=== PATIENT | male | born 1945 | race Caucasian/White ===

== ENCOUNTER 2018-01-13 08:04 | Inpatient (IN) | payer OTHER ==
[~2018-01-13 08:04] MED LIST: TRANEXAMIC ACID 1,000 MG in NS (SYRINGE) 50 ML IV ONE
[2018-01-13] MEDS ORDERED: ACETAMINOPHEN 500 MG TAB PO ONE (08:30)
[2018-01-13] MEDS ORDERED: ceFAZolin 2 GM/SWFI 2 GM/20 ML SYR IVP ONE (08:30)
[2018-01-13] MEDS ORDERED: GABAPENTIN 300 MG CAP PO ONE (08:30)
--- NOTE | 2018-01-13 09:06 | CPEKG ---
Heart Rate: 76 RR Interval: 789 P-R Interval: 168 QRSD Interval: 108 QT Interval: 392 QTC Interval: 441 P [place]: -11 QRS [place]: 13 T Wave [place]: 74 EKG Severity - ABNORMAL ECG - EKG Impression: SINUS RHYTHM EKG Impression: PROBABLE LEFT ATRIAL ABNORMALITY EKG Impression: INCOMPLETE RIGHT BUNDLE BRANCH BLOCK Electronically Signed By: Terrance Bauer 13-Jan-2018 09:33:13
[2018-01-13] MEDS ORDERED: BUPIVACAINE 0.25% 30 ML SDV ONE ×3 (09:12→16:31)
[2018-01-13] MEDS ORDERED: CHLORHEXIDINE GLUC HIBICLENS 118 ML BTL TP ONE (09:12)
[2018-01-13] MEDS ORDERED: THROMBIN (BOVINE) 20,000 UNIT VIAL TP ONE ×2 (09:12→14:51)
[2018-01-13] MEDS ORDERED: EPINEPHrine 1 MG/ML INJ ONE ×2 (09:12→16:31)
[2018-01-13] MEDS ORDERED: BACITRACIN 50,000 UNITS/10 ML SYR IRR ONE ×2 (09:13→09:34)
[2018-01-13] MEDS ORDERED: TRANEXAMIC ACID 1,000 MG in NS (SYRINGE) 50 ML IV ONE (09:30)
[2018-01-13] MEDS ORDERED: LR 1,000 ML IV ONE (09:34)
--- NOTE | 2018-01-13 10:26 | PDANEPAE ---
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, ANE Past Medical History - Cardiovascular History Hx Hypertension: No Hx Arrhythmias: No Hx Chest Pain: No Hx Coronary Artery / Peripheral Vascular Disease: No Hx CHF / Valvular Disease: No Hx Palpitations: No Cardiovascular History Comment: Incomplete RBBB - Pulmonary History Hx COPD: No Hx Asthma/Reactive Airway Disease: Yes Hx Recent Upper Respiratory Infection: No Hx Oxygen in Use at Home: No Hx Sleep Apnea: No Sleep Apnea Screening Result - Last Documented: Negative Pulmonary History Comment: SEASONAL ALLERGIES - Neurologic History Hx Cerebrovascular Accident: No Hx Seizures: No Hx Dementia: No - Endocrine History Hx Diabetes: No Obesity: moderate - Renal History Hx Renal Disorders: No - Liver History Hx Hepatic Disorders: No - Neurological & Psychiatric Hx Hx Neurological and Psychiatric Disorders: Yes Neurological / Psychiatric History Comment: numbness in lower extremities and groin which started about 1 month after his surgery in 08/30, has ambulated with crutches since then. - Cancer History Hx Cancer: No - Congenital Disorder History Hx Congenital Disorders: No - GI History GERD: no Hx Gastrointestinal Disorders: No - Other Health History Other Health History: PSORIASIS - Chronic Pain History Chronic Pain: Yes (BACK WEAKNESS & NUMBNESS) - Surgical History Prior Surgeries: 08/2017 LUMBAR DECOMPRESSION AND CYST REMOVAL. ANKLE FX. TONSILLECTOMY ANE Review of Systems Review of Systems: - Exercise capacity METS (RN): 3 METS ANE Patient History - Allergies Allergies/Adverse Reactions: No Known Allergies Allergy (Unverified 01/02/18 10:23) - Home Medications Home Medications: Albuterol [Proventil Inhaler HFA (*)] 2 puffs IH Q4H PRN 01/02/18 [Last Taken ] C/E/Zn/Cu/OM3/DHA/EPA/LUT/ZEAX [Preservision Areds 2 Softgel] 1 each PO DAILY [Last Taken 01/06/18] Cholecalciferol Vit D3 [Vitamin D3 (*)] 1,000 units PO DAILY 01/02/18 [Last Taken 01/06/18] Cyanocobalamin [Vitamin B12 (*)] 500 mcg PO DAILY 01/02/18 [Last Taken 01/06/18] Fluticasone Nasal [Flonase Nasal [place] (RX)] 1 sprays NASAL DAILY PRN 01/02/18 [ Last Taken 01/13/18 06:15] Fluticasone/Salmeter 250/50Mcg [Advair 250/50 (*)] 1 puffs IH BID 01/02/18 [ Last Taken Unknown] Herbals/Supplements -Info Only 1 ea PO DAILY 01/02/18 [Last Taken 01/06/18] Multivitamins [Multivitamin (*)] 1 each PO DAILY 01/02/18 [Last Taken 01/06/18] Naproxen Sodium [Aleve 220 MG (*)] 440 mg PO BID 01/02/18 [Last Taken Unknown] Niacin ER [Niaspan 500 mg (*)] 500 mg PO HS 01/02/18 [Last Taken 01/06/18] - NPO status NPO Since - Liquids (Date): 01/12/18 NPO Since - Liquids (Time): 07:30 NPO Since - Solids (Date): 01/12/18 NPO Since - Solids (Time): 19:30 - Smoking Hx Smoking Status: Never smoked - Family Anes Hx Family Hx Anesthesia Complications: NEG ANE Labs/Vital Signs - Vital Signs Blood Pressure: 128/84 Heart Rate: 84 Respiratory Rate: 18 O2 Sat (%): 89 Height: 167.64 cm Weight: 90.718 kg ANE Physical Exam - Airway Neck exam: FROM Mallampati Score: Class 2 Mouth exam: normal dental/mouth exam (front upper teeth are ground/chipped) - Pulmonary Pulmonary: clear to auscultation - Cardiovascular Cardiovascular: regular rate and rhythym - ASA Status ASA Status: III ANE Anesthesia Plan Anesthesia Plan: general endotracheal anesthesia Lines/Monitors: arterial line (Procedure/risks/benefits discussed including intra-arterial BP monitoring, possible postop ICU care.)
[2018-01-13] MEDS ORDERED: MIDAZOLAM 2 MG/2 ML VIAL IVP ONE (10:33)
[2018-01-13] MEDS ORDERED: fentaNYL 250 MCG/5 ML INJ ONE (10:38)
[2018-01-13] MEDS ORDERED: ROCURONIUM 50 MG/5 ML VIAL ONE ×2 (10:39→13:01)
[2018-01-13] MEDS ORDERED: KETAMINE 200 MG/20 ML VIAL ONE (10:39)
[2018-01-13] MEDS ORDERED: PROPOFOL/EMULSION 500 MG/50 ML BOTTLE IV ONE ×3 (10:39→14:40)
[2018-01-13] MEDS ORDERED: DEXAMETHASONE 4 MG/ML VIAL ONE (10:53)
[2018-01-13] MEDS ORDERED: fentaNYL 100 MCG/2 ML INJ ONE ×3 (13:47→17:46)
[2018-01-13] MEDS ORDERED: ONDANSETRON 4 MG/2 ML VIAL ONE (15:39)
--- NOTE | 2018-01-13 15:59 | GOP ---
[f rep st] OPERATIVE REPORT DATE OF OPERATION: 01/13/2018 SURGEON: Josiah Christian MD NEUROSURGEON: Josiah Christian MD GREEN CHAIN PULLER: EFE Castillo. ANESTHESIA: General endotracheal. ANESTHESIOLOGIST: After informed consent was obtained, the patient was taken to the operating room a nd placed in the supine position with the head in the halter retractor system. After obtaining baseli ne potentials, the anterior cervical region was prepped and draped in a sterile fashion. After fluor oscopic localization of the correct levels, the subcutaneous and intramuscular tissues were infiltrat ed with local anesthesia. A horizontal incision was then created in the skin crease at the level C5- 6 interspace. This was carried through the platysmal layer using monopolar electrocautery and sebastian d in the avascular plane between the sternocleidomastoid and carotid sheath laterally and the strap m uscles, trachea, and esophagus medially down to the prevertebral fascia, which was carefully incised with Metzenbaum scissors. Note, that the exposure was very time consuming and arduous due to the pat ient's morbid obesity but I was able to obtain a good exposure. Working at a much deeper depth did m oliver the entire procedure much more difficult and time consuming. There was a large osteophyte that w as carefully removed and harvested for local autograft. The distraction pins were then inserted and a slight amount of distraction created across the C5-6 interspace using the [place] distraction pins. A complete diskectomy was then performed with removal of posterior longitudinal ligament and the pos teriorly protruding osteophytes as well. Bilateral foraminotomies were performed and meticulous hemo stasis was achieved. The remaining endplates were carefully prepared and an appropriately sized 12 m m structural PEEK interbody spacer packed with local autograft in the center along with demineralized bone matrix was placed in the interspace under fluoroscopic image guidance. The distraction was rem barry and an appropriately sized 23 mm LnK CastleLoc-P anterior cervical plate was then placed and sec ured at the C5-6 level. Following fluoroscopic verification of the position of the plate, the lockin g mechanisms were engaged. A drain was placed. The wound was copiously irrigated with antibiotic ir rigation followed by reinfiltration with local anesthesia and closed in a layered fashion using inter rupted Vicryl sutures followed by Steri-Strips on the skin. PREOPERATIVE DIAGNOSIS: C5-6 disk degeneration and disk herniation with cervical central canal steno sis and spinal cord compression. POSTOPERATIVE DIAGNOSIS: C5-6 disk degeneration and disk herniation with cervical central canal sten osis and spinal cord compression. PROCEDURE PERFORMED: C5-6 complete anterior cervical diskectomy and fusion with 12 mm structural PEE K interbody spacers, local autograft and demineralized bone matrix. Placement of a 23 mm LnK CastleL oc-P anterior cervical plate with self-drilling screws. Use of intraoperative microscopy and fluoros copy. FINDINGS: ESTIMATED BLOOD LOSS: 25 cc. INDICATIONS: Patient is a 72-year-old man who has progressive myelopathic symptoms most predominantl y secondary to a thoracic spinal lesion causing cord compression, but he also has evidence of central canal stenosis and spinal cord compression at the cervical level secondary to C5-6 disk degeneration , collapse and herniation. He presents now for surgical decompression and stabilization at the C5-6 level and at the upper thoracic level. DESCRIPTION OF PROCEDURE: COMPLICATIONS: None. DISPOSITION: The patient is currently being repositioned for the posterior portion of the operation in the upper thoracic level. /[id number]/MODL
[2018-01-13] MEDS ORDERED: PROPOFOL 200 MG/20 ML VIAL ONE (16:29)
[2018-01-13] MEDS ORDERED: morphINE PF 5 MG/10 ML INJ ONE (16:31)
[2018-01-13] MEDS ORDERED: ceFAZolin 1 GM VIAL ONE (16:32)
[2018-01-13] MEDS ORDERED: ALBUTEROL 60 PUFFS/8 GM MDI IH PRN (16:57)
[2018-01-13] MEDS ORDERED: FLUTICASONE NASAL 120 SPRAYS/16 GM MDI EACHNARE PRN (16:57)
[2018-01-13] MEDS ORDERED: ONDANSETRON DISINTEGRATING 4 MG TAB PO PRN (16:58)
[2018-01-13] MEDS ORDERED: MAGNESIUM HYDROXIDE 30 ML UDCUP PO PRN (16:58)
[2018-01-13] MEDS ORDERED: LACTULOSE 20 GM/30 ML UDCUP PO PRN (16:58)
[2018-01-13] MEDS ORDERED: ONDANSETRON 4 MG/2 ML VIAL IVP PRN ×2 (16:58→17:50)
[2018-01-13] MEDS ORDERED: NALOXONE HCL 0.4 MG/ML INJ IVP PRN ×2 (16:58→17:50)
[2018-01-13] MEDS ORDERED: BISACODYL 10 MG SUPP PR PRN (16:58)
[2018-01-13] MEDS ORDERED: morphINE PCA 30 MG/30 ML PCA IV PRN (16:58)
[2018-01-13] MEDS ORDERED: diphenhydrAMINE 25 MG CAP PO PRN (16:58)
[2018-01-13] MEDS ORDERED: NS W/ 20 KCl/L 1,000 ML IV SCH (17:00)
--- NOTE | 2018-01-13 17:13 | SOAPPROG ---
SOAP Progress Note Assessment/Plan: Assessment: 72 yo M sp C5/6 ACDF for cervical stenosis and T2-6 fusion with L3/ 4 laminectomy for tumor resection Plan: stable to step down for observation PT/OT weak in legs prior to surgery please call with neuro changes 01/13/18 17:11 Subjective: no back pain, no arm pain. Objective: Vital Signs Temp Pulse Resp BP Pulse Ox 36.7 C 84 18 128/84 H 89 L 01/13/18 09:14 01/13/18 11:58 01/13/18 11:58 01/13/18 11:58 01/13/18 11:58 Laboratory Results 01/13/18 14:20 01/13/18 14:20 awake, alert PERRL, no facial droop MORENITA x 4 with limited movement of legs similar to before surgery. ICD10 Worksheet Patient Problems: Problems Problem Status Onset Fusion of spine of cervical region Acute - ICD10 Problem Qualifiers (1) Fusion of spine of cervical region
[2018-01-13] MEDS ORDERED: HYDROmorphONE/DILAUDID 2 MG/ML INJ ONE (17:46)
[2018-01-13] MEDS: fentaNYL 100 MCG/2 ML INJ IVP PRN ×3 (17:54→18:08)
--- NOTE | 2018-01-13 19:47 | POSTANESTH ---
Post Anesthetic Evaluation Cardiovascular Status: Normal, Stable Respiratory Status: Similar to Pre-op Cond. Level of Consciousness/Mental Status: Can Participate in Eval Pain Control: Adequate, Prn Tx Ordered Nausea/Vomiting Control: Adequate, Prn Tx Ordered Complications Possibly Related to Anesthesia: None Noted
[2018-01-13] MEDS: FLUTICASONE/SALMETER 250/50MCG DISKUS IH SCH (20:50)
[2018-01-13] MEDS: morphINE SR 15 MG TAB PO SCH (21:15)
[2018-01-13] MEDS: ceFAZolin 2 GM/SWFI 2 GM/20 ML SYR IVP SCH (21:17)
[2018-01-13] MEDS: SENNOSIDES/DOCUSATE SODIUM TAB PO SCH (21:18)
[2018-01-13] MEDS: POLYETHYLENE GLYCOL 3350 17 GM PKT PO SCH (21:18)
[2018-01-13] MEDS: FAMOTIDINE 20 MG TAB PO SCH (21:19)
[2018-01-13] MEDS: NIACIN ER 500 MG TAB.ER PO SCH (21:22)
[2018-01-13] MEDS ORDERED: ceFAZolin 2 GM/DEXTROSE 100 ML IV SCH (22:00)
--- NOTE | 2018-01-13 22:36 | GOP ---
[f rep st] OPERATIVE REPORT DATE OF OPERATION: 01/13/2018 SURGEON: Josiah Christian MD NEUROSURGEON: Josiah Christian MD AUTOMOTIVE UPHOLSTERER: EFE Castillo ANESTHESIA: General endotracheal. 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 PROCEDURE PERFORMED: 1. T3-4 laminectomies with facetectomies and costotransvertebral approach for partial corpectomy and tumor resection for decompression of spinal cord. 2. T2 through T6 posterior segmental (pedicle screw) fixation and posterolateral fusion with morseli zed allograft. 3. Injection of intrathecal narcotic analgesics. 4. Use of intraoperative microscopy, fluoroscopy, and computer volumetric stereotactic navigation [facility] intraoperative neurophysiologic testing. FINDINGS: ESTIMATED BLOOD LOSS: 500 cc. DESCRIPTION OF PROCEDURE: After informed consent was obtained and after the anterior cervical proced ure was completed, the patient was repositioned prone on the Ciro table. Stable baselines were co nfirmed and after fluoroscopic localization, the subcutaneous and intramuscular tissues were infiltra felicita with local anesthesia. A midline linear incision was then created from approximately T2 through T6. This was carried down to the fascial layer, which was then incised using the monopolar electroca utery and carried in the subperiosteal plane along the spinous processes down to the lamina bilateral ly. Intraoperative fluoroscopy was again utilized to verify the correct levels. Following this, T3 and T4 laminectomies were performed with complete facetectomy at the T3-4 level and extensive drillin g through a costotransvertebral approach down to the T4 pedicle, which was carefully removed using e coarse jefe bur. The C4 nerve root was tied off and in order to access the vertebral bodies whe re there was an extensive amount of epidural tumor causing cord compression. This was removed and se nt for pathology. A partial corpectomy was then performed using the coarse jefe bur and the pitui tary rongeurs at both T3 and T4. Following adequate decompression and copious irrigation, meticulous hemostasis was achieved using Gelfoam soaked in thrombin, which was then removed. The [facility] was then [facility] in and 3-D reconstructed images obtained. Using computer volumetr ic stereotactic navigation, pedicle screws were placed at T2, T3, T4, T5, and T6. Each individual sc rew was tested neurophysiologically with monopolar electrostimulation and interpretation of the poten tials by the surgeon. The rods were then placed and secured at the appropriate angles. The remainin g lamina and facet joints were then extensively decorticated from T2 down to T6 and morselized allogr aft placed laterally for posterolateral fusion from T2-T6. I did not use the local autograft that wa s removed due to the bony involvement of tumor. A drain was then placed. The subcutaneous and intra muscular tissues were re-infiltrated with local anesthesia, and the wound was closed in a layered fas hion using interrupted Vicryl sutures, followed by Steri-Strips on the skin. Note that the O-arm therese ronavigational system was also utilized to verify good position of the screws prior to closure. A 25 -gauge spinal needle was placed in the lumbar spine and 200 mcg of Duramorph along with 50 mcg of fen tanyl were injected intrathecally for postoperative pain control. COMPLICATIONS: None. 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 He presents now for decompression and stab ilization of the cervical stenosis, as well as open biopsy/resection/partial corpectomy/decompression and facetectomy and instrumentation in the thoracic area. DISPOSITION: The patient is currently in the process of being repositioned for extubation. /[id number]/MODL
[2018-01-14 02:33] LABS: PLATELET COUNT 173 10^3/uL (150-400)
[2018-01-14] MEDS ORDERED: ALBUMIN 5% 500 ML IV ONE (04:00)
[2018-01-14] MEDS ORDERED: NS BOLUS 500 ML IV ONE (04:00)
--- NOTE | 2018-01-14 05:27 | PDMN ---
Medical Necessity Medical necessity: [facility] IP only surgery, cpt 59050, 11851, 13883, C5/6 ACDF, T2 -T6 fusion & L3/4 laminectomy w/tumor resection; admit to Step-Down ICU; per progress note & order 01/13/18
[2018-01-14] MEDS: ceFAZolin 2 GM/SWFI 2 GM/20 ML SYR IVP SCH (05:29)
[2018-01-14] MEDS: POLYETHYLENE GLYCOL 3350 17 GM PKT PO SCH ×3 (08:01→21:46)
[2018-01-14] MEDS: SENNOSIDES/DOCUSATE SODIUM TAB PO SCH ×2 (08:02→21:46)
[2018-01-14] MEDS: morphINE SR 15 MG TAB PO SCH ×2 (08:02→21:46)
[2018-01-14] MEDS: FAMOTIDINE 20 MG TAB PO SCH ×2 (08:02→21:47)
--- NOTE | 2018-01-14 08:02 | NEUSURGPN ---
Date of Surgery: 01/13/18 Post Op Day: 1 Assessment/Plan: Assessment: 72 yo M sp C5/6 ACDF for cervical stenosis and T2-6 fusion with L3/ 4 laminectomy for tumor resection POD #1 Plan: -neuro stable -JPs still productive -pt with continue numbness in feet but this is better -CDI x 2 -plan for C and T spine xrays -plan for MRI of the T spine today -PT/OT-CPM -weak in legs prior to surgery-better per patient -D/W Dr Olson -call with any questions or concerns -please call with neuro changes Subjective: Awake and alert. NAD. Eating/drinking and voiding. No f/c/n/v/d. Objective: AAO x 3, PERRLA/EOMI no droop CN 2-12 grossly intact +lt touch 5/5 BUE/BLE = CDI Neuro Check Frequency: per routine Urinary Catheter in Place: No - Physician Discussed Patient with : Anahi Neurosurgery Physical Exam - Vitals, I&O, Labs I and O 01/13/18 01/14/18 01/15/18 05:59 05:59 05:59 Intake Total 4846.3 Output Total 1865 Balance 2981.3 Weight 90.718 kg Intake: Oral (ml) 240 IV Intake (ml) 2000 IV Infused (ml) 2606.3 Albumin 5% 500 ml @ As 500 Directed IV ONCE ONE Rx#: [id number] NS W/ 20 KCl/L 1,000 ml @ 1103 100 mls/hr IV CONT ROMEL Rx#:[id number] Ns 500 ml @ As Directed 1000 IV ONCE ONE Rx#: [id number] morphINE ANIMAL CARE ASSISTANT See Protocol 3.3 IV PRN PRN Rx#: [id number] Output: Urine (ml) 1080 Catheter 1080 Estimated Blood Loss (ml) 500 MICHAEL Drain Output (ml) 285 #1 Anterior Neck Ciro 30 [place] #2 Posterior Back Ciro 255 [place] Other: Intake Quantity No Sufficient Vital Signs Temp Pulse Resp BP Pulse Ox 37.1 C 79 19 98/55 L 97 01/14/18 07:40 01/14/18 07:40 01/14/18 07:40 01/14/18 07:40 01/14/18 07:40 Laboratory Results 01/14/18 02:05 01/14/18 02:05 ICD10 Worksheet Patient Problems: Problems Problem Status Onset Fusion of spine of cervical region Acute
[2018-01-14] MEDS: FLUTICASONE/SALMETER 250/50MCG DISKUS IH SCH (08:42)
[2018-01-14] MEDS ORDERED: FLUTICASONE/SALMETER 250/50MCG DISKUS IH PRN (08:52)
--- NOTE | 2018-01-14 14:48 | ASMTCMCOM ---
CM Note CM Note Notes: 72yr old male admitted for severe spinal cord compression. C5-6, T2-6 fusion, L3-4 lami, tumor resection. Patient being fitted for a brace, has 2 MICHAEL's. Therapies to eval, possible In-pt Rehab in the future. Date Signed: 01/14/2018 02:48 PM Electronically Signed By:Isabella Jenkins LCSW
[2018-01-14] MEDS ORDERED: GADOBUTROL 10 ML VIAL IVP ONE (16:11)
[2018-01-14] MEDS: NIACIN ER 500 MG TAB.ER PO SCH (21:47)
[2018-01-14] MEDS: METHOCARBAMOL 750 MG TAB PO PRN (23:22)
[2018-01-14] MEDS: oxyCODONE IR 5 MG TAB PO PRN (23:37)
[2018-01-15] MEDS: oxyCODONE IR 5 MG TAB PO PRN ×4 (03:30→22:19)
--- NOTE | 2018-01-15 07:34 | NEUSURGPN ---
Date of Surgery: 01/13/18 Post Op Day: 2 Assessment/Plan: Assessment: 72 yo M sp C5/6 ACDF for cervical stenosis and T2-6 fusion with L3/ 4 laminectomy for tumor resection POD #2 Plan: -neuro stable -continue JPs x 2 -C and T spine xrays: hardware in good placement -MRI T spine: no residual tumor -PT/OT -brace -dispo planning -D/W Dr Olson -please call with neuro changes Subjective: Having localized neck pain. Numbness/weakness improved per patient. Objective: Awake. Alert. PERRL. EOMI Following commands UE strength 5/5 LE strength 5/5 except for right knee flex at 5-/5 Catheter Insertion Date: 01/13/18 - Physician Discussed Patient with : Anahi Neurosurgery Physical Exam - Vitals, I&O, Labs I and O 01/14/18 01/15/18 01/16/18 05:59 05:59 05:59 Intake Total 4846.3 2152 Output Total 1865 2205 Balance 2981.3 -53 Weight 90.718 kg Intake: Oral (ml) 240 2150 IV Intake (ml) 2000 IV Infused (ml) 2606.3 2 Albumin 5% 500 ml @ As 500 Directed IV ONCE ONE Rx#: [id number] NS W/ 20 KCl/L 1,000 ml @ 1103 100 mls/hr IV CONT ROMEL Rx#:[id number] Ns 500 ml @ As Directed 1000 IV ONCE ONE Rx#: [id number] morphINE RIG MECHANIC See Protocol 3.3 2 IV PRN PRN Rx#: [id number] Output: Urine (ml) 1080 1900 Catheter 1080 1900 Estimated Blood Loss (ml) 500 MICHAEL Drain Output (ml) 285 305 #1 Anterior Neck Ciro 30 20 [place] #2 Posterior Back Ciro 255 285 [place] Other: Intake Quantity No Sufficient Number of Stools Catheter 0 Bladder Scan Volume (ml) Catheter 500 Vital Signs Temp Pulse Resp BP Pulse Ox 37.3 C 90 18 106/60 97 01/14/18 23:50 01/15/18 03:34 01/15/18 03:34 01/15/18 03:34 01/15/18 03:34 Laboratory Results 01/14/18 02:05 01/14/18 02:05 ICD10 Worksheet Patient Problems: Problems Problem Status Onset Fusion of spine of cervical region Acute
[2018-01-15] MEDS: morphINE SR 15 MG TAB PO SCH ×2 (08:52→21:04)
[2018-01-15] MEDS: FAMOTIDINE 20 MG TAB PO SCH ×2 (08:52→21:04)
[2018-01-15] MEDS: SENNOSIDES/DOCUSATE SODIUM TAB PO SCH ×2 (08:53→21:04)
[2018-01-15] MEDS: METHOCARBAMOL 750 MG TAB PO PRN ×2 (08:53→21:05)
[2018-01-15] MEDS: POLYETHYLENE GLYCOL 3350 17 GM PKT PO SCH ×3 (08:53→21:05)
[2018-01-15] MEDS: TAMSULOSIN HCL 0.4 MG CAP PO SCH (11:04)
[2018-01-15] MEDS: DIAZEPAM 5 MG TAB PO PRN (15:32)
[2018-01-15] MEDS: NIACIN ER 500 MG TAB.ER PO SCH (21:04)
--- NOTE | 2018-01-16 08:54 | SOAPPROG ---
SOAP Progress Note Assessment/Plan: Assessment: 72 yo M POD #3 C5/6 ACDF for cervical stenosis and T2-6 fusion with L3/4 laminectomy for tumor resection Plan: neuro: stable and doing well overall :) may need HHC or SNF rehab PT/OT post op x-rays look good scd/felicita/lovenox for DVT prophylaxis please call with neuro changes discussed with Dr Olson 01/13/18 17:11 01/16/18 08:51 Subjective: + neck pain and thoracic pain, legs seem stronger Objective: Vital Signs Temp Pulse Resp BP Pulse Ox 36.8 C 80 16 125/78 H 99 01/16/18 07:58 01/16/18 07:58 01/16/18 07:58 01/16/18 07:58 01/16/18 07:58 Laboratory Results 01/14/18 02:05 01/14/18 02:05 01/15/18 01/16/18 01/17/18 05:59 05:59 05:59 Intake Total 2152 1250 Output Total 2205 1268 Balance -53 -18 AAOX4, +FC PERRL, EOMI, no facial droop 5/5 + light touch C/D/I x 2 ICD10 Worksheet Patient Problems: Problems Problem Status Onset Fusion of spine of cervical region Acute - ICD10 Problem Qualifiers (1) Fusion of spine of cervical region
[2018-01-16] MEDS: TAMSULOSIN HCL 0.4 MG CAP PO SCH (10:11)
[2018-01-16] MEDS: FAMOTIDINE 20 MG TAB PO SCH ×2 (10:12→21:29)
[2018-01-16] MEDS: morphINE SR 15 MG TAB PO SCH ×2 (10:12→21:28)
[2018-01-16] MEDS: ENOXAPARIN 40 MG/0.4 ML SYR SC SCH (10:13)
[2018-01-16] MEDS: SENNOSIDES/DOCUSATE SODIUM TAB PO SCH ×2 (10:13→21:28)
[2018-01-16] MEDS: POLYETHYLENE GLYCOL 3350 17 GM PKT PO SCH ×3 (10:13→21:56)
[2018-01-16] MEDS: oxyCODONE IR 5 MG TAB PO PRN ×2 (14:15→19:02)
[2018-01-16] MEDS: METHOCARBAMOL 750 MG TAB PO PRN (14:15)
--- NOTE | 2018-01-16 15:30 | ASMTCMCOM ---
CM Note CM Note Notes: PT/OT rec inpatient rehab. Pt requests referral to [facility] in [place] where pt lives. The Center accepts pt. D/c plan of care: [facility] when medically stable Date Signed: 01/16/2018 03:29 PM Electronically Signed By:MERCEDES Felton
[2018-01-16] MEDS: NIACIN ER 500 MG TAB.ER PO SCH (21:29)
[2018-01-16] MEDS: DIAZEPAM 5 MG TAB PO PRN (21:29)
[2018-01-17] MEDS: METHOCARBAMOL 750 MG TAB PO PRN ×2 (02:00→15:18)
[2018-01-17] MEDS: oxyCODONE IR 5 MG TAB PO PRN ×5 (02:00→23:25)
[2018-01-17] MEDS: DIAZEPAM 5 MG TAB PO PRN ×2 (07:25→19:51)
[2018-01-17] MEDS: morphINE SR 15 MG TAB PO SCH ×2 (09:03→19:51)
[2018-01-17] MEDS: SENNOSIDES/DOCUSATE SODIUM TAB PO SCH ×2 (09:03→19:52)
[2018-01-17] MEDS: TAMSULOSIN HCL 0.4 MG CAP PO SCH (09:03)
[2018-01-17] MEDS: ENOXAPARIN 40 MG/0.4 ML SYR SC SCH (09:03)
[2018-01-17] MEDS: FAMOTIDINE 20 MG TAB PO SCH ×2 (09:04→19:51)
[2018-01-17] MEDS: POLYETHYLENE GLYCOL 3350 17 GM PKT PO SCH ×3 (09:04→19:52)
--- NOTE | 2018-01-17 09:48 | NEUSURGPN ---
Assessment/Plan: Assessment: 72 yo M POD #4 C5/6 ACDF for cervical stenosis and T2-6 fusion with L3/4 laminectomy for tumor resection Plan: neuro: stable and doing well overall path = hemangioma may need HHC or SNF rehab MICHAEL drain in place posterior - keep this in until he dc's dressing change today PT/OT post op x-rays look good scd/felicita/lovenox for DVT prophylaxis please call with neuro changes discussed with Dr Wesley brumfield - work on placement snf today vs tomorrow. preference from NS standpoint is to dc today but may not have good transport today. Subjective: Pt resting in bed, eating and drinking ok, pain well managed. Objective: AAOx3 NAD VSS MAEx4 Motor 5/5 BUE/BLE Dressing in place anterior and posterior C collar in place +LT Urinary Catheter in Place: Yes Urinary Catheter Indication: Urinary Tract Obstruction Catheter Insertion Date: 01/13/18 - Physician Discussed Patient with : Anahi Neurosurgery Physical Exam - Vitals, I&O, Labs I and O 01/16/18 01/17/18 01/18/18 05:59 05:59 05:59 Intake Total 1250 350 Output Total 1268 1260 Balance -18 -910 Intake: Oral (ml) 1250 350 Output: Urine (ml) 1100 1175 Catheter 1100 1175 MICHAEL Drain Output (ml) 168 85 #1 Anterior Neck Ciro 8 [place] #2 Posterior Back Ciro 160 85 [place] Other: Intake Quantity Yes Sufficient Number of Voids Catheter 1 Toilet 3 Number of Stools Toilet 1 1 Vital Signs Temp Pulse Resp BP Pulse Ox 36.7 C 82 16 141/79 H 93 01/17/18 08:00 01/17/18 08:00 01/17/18 08:00 01/17/18 08:00 01/17/18 08:00 Laboratory Results 01/14/18 02:05 01/14/18 02:05 ICD10 Worksheet Patient Problems: Problems Problem Status Onset Fusion of spine of cervical region Acute
--- NOTE | 2018-01-17 17:04 | ASMTCMCOM ---
CM Note CM Note Notes: Discussed dc plan of care today with pt, RN and Dr Christian and PAJacquelyn. Plan is for pt to dc tomorrow to [facility] in [place] (pt confirmed that this is where he would like to do rehab). Spoke w/[facility] at this facility; they are able to accept tomorrow; transport set up by Syeda veloz/[facility] transport (Dr Olson felt he should go by stretcher) for 11AM saturday AM 01/18/18. PCS completed and faxed to Syeda; she assured me that if Medicare did not cover this transport that the charges would not fall on pt. Notified pt of transport pickup time. discussed w/RN. Date Signed: 01/17/2018 05:03 PM Electronically Signed By:Gisela Schafer RN
[2018-01-17] MEDS: NIACIN ER 500 MG TAB.ER PO SCH (19:52)
[2018-01-18 07:21] VITALS: BP 143/66
[2018-01-18] MEDS: ENOXAPARIN 40 MG/0.4 ML SYR SC SCH (08:03)
[2018-01-18] MEDS: morphINE SR 15 MG TAB PO SCH (08:03)
[2018-01-18] MEDS: TAMSULOSIN HCL 0.4 MG CAP PO SCH (08:03)
[2018-01-18] MEDS: FAMOTIDINE 20 MG TAB PO SCH (08:03)
[2018-01-18] MEDS: SENNOSIDES/DOCUSATE SODIUM TAB PO SCH (08:04)
[2018-01-18] MEDS: POLYETHYLENE GLYCOL 3350 17 GM PKT PO SCH (08:04)
--- NOTE | 2018-01-18 09:37 | NEUSURGPN ---
Date of Surgery: 01/13/18 Post Op Day: 5 Assessment/Plan: Assessment: 72 yo M POD #5 C5/6 ACDF for cervical stenosis and T2-6 fusion with L3/4 laminectomy for tumor resection Plan: neuro: stable and doing well overall path = hemangioma DC to SNF in [place] today MICHAEL drain removed yesterday PT/OT post op x-rays stable scd/felicita/lovenox for DVT prophylaxis please call with neuro changes discussed with Dr Olson Subjective: Patient doing well, ready to transfer to SNF today Objective: AAOx3 NAD VSS MAEx4 Motor 5/5 BUE/BLE Dressing in place anterior and posterior-CDI C collar in place +LT Neuro Check Frequency: per routine Urinary Catheter in Place: No Catheter Insertion Date: 01/13/18 - Physician Discussed Patient with : Anahi Neurosurgery Physical Exam - Vitals, I&O, Labs I and O 01/17/18 01/18/18 01/19/18 05:59 05:59 05:59 Intake Total 350 350 Output Total 1260 230 Balance -910 -230 350 Intake: Oral (ml) 350 350 Output: Urine (ml) 1175 200 Catheter 1175 Toilet 200 MICHAEL Drain Output (ml) 85 30 #2 Posterior Back Ciro 85 30 [place] Other: Intake Quantity Yes Sufficient Number of Voids Toilet 3 1 1 Number of Stools Toilet 1 1 Vital Signs Temp Pulse Resp BP Pulse Ox 36.8 C 91 16 143/66 H 91 L 01/18/18 07:16 01/18/18 07:16 01/18/18 07:16 01/18/18 07:16 01/18/18 07:16 Laboratory Results 01/14/18 02:05 01/14/18 02:05 ICD10 Worksheet Patient Problems: Problems Problem Status Onset Fusion of spine of cervical region Acute
--- NOTE | 2018-01-18 09:46 | PDIAF ---
- Diagnosis Diagnosis: S/P ACDF C5-6, T2-6 fusion with T3-4 lami for tumor resection ( hemangioma) Code Status: Full Code - Medication Management Discharge Medications: Medications to Continue on Transfer Albuterol [Proventil Inhaler HFA (*)] 2 puffs IH Q4H PRN 01/02/18 [Last Taken ] C/E/Zn/Cu/OM3/DHA/EPA/LUT/ZEAX [Preservision Areds 2 Softgel] 1 each PO DAILY [Last Taken 01/06/18] Cholecalciferol Vit D3 [Vitamin D3 (*)] 1,000 units PO DAILY 01/02/18 [Last Taken 01/06/18] Cyanocobalamin [Vitamin B12 (*)] 500 mcg PO DAILY 01/02/18 [Last Taken 01/06/18] Fluticasone Nasal [Flonase Nasal Ravia] 1 sprays NASAL DAILY PRN 01/02/18 [Last Taken 01/13/18 06:15] Fluticasone/Salmeter 250/50Mcg [Advair 250/50 (*)] 1 puffs IH BID 01/02/18 [ Last Taken Unknown] Herbals/Supplements -Info Only 1 ea PO DAILY 01/02/18 [Last Taken 01/06/18] Multivitamins [Multivitamin (*)] 1 each PO DAILY 01/02/18 [Last Taken 01/06/18] Niacin ER [Niaspan 500 mg (*)] 500 mg PO HS 01/02/18 [Last Taken 01/06/18] Diazepam [Valium 5 MG (*)] 5 mg PO Q8HRS PRN #60 tab 01/18/18 [Last Taken Unknown] Methocarbamol [Robaxin 750 mg (*)] 750 mg PO QID PRN #60 tab 01/18/18 [Last Taken Unknown] Sennosides/Docusate Sodium [Senokot-S] 1 - 2 tab PO BID tab 01/18/18 [Last Taken Unknown] Tamsulosin HCl [Flomax 0.4 MG (*)] 0.4 mg PO DAILY #10 cap 01/18/18 [Last Taken Unknown] oxyCODONE IR [Oxycodone Ir (*)] 5 - 10 mg PO Q4HRS PRN #60 tab 01/18/18 [Last Taken Unknown] Discharge Medications: Refer to the Discharge Home Medication list for PRN reason. PICC Care - Routine: N/A - Orders Services needed: Registered Nurse, Physical Therapy, Occupational Therapy, Speech Language Pathologist Isolation Type: None Diet Recommendation: no restrictions on diet Diet Texture: Regular Texture Diet Wound Care Instructions: Leave steri strips/sutures in place until follow up visit Activity/Weight Bearing Restrictions: Do not lift greater than 10 pounds Equipment: Wear collar at all times except in shower - Follow Up Care Current Providers and Referrals: Doctor Tierney,On Staff, [Primary Care Provider] - Josiah Christian MD [Medical Doctor] - follow up in 2 weeks
[2018-01-18] MEDS: oxyCODONE IR 5 MG TAB PO PRN (09:55)
[2018-01-18] MEDS: DIAZEPAM 5 MG TAB PO PRN (13:36)
--- NOTE | 2018-01-18 15:06 | ASDISCHSUM ---
Discharge Information Plan Status:SNF Medically Cleared to Leave: Discharge Date:01/18/2018 01:40 PM D/C Disposition:Fdc Facility ADT D/C Disposition:Fdc Facility Projected Discharge Date:01/18/2018 11:00 AM Transportation at D/C: Discharge Delay Reason: Follow-Up Date:01/18/2018 11:00 AM Discharge Slot: Final Diagnosis:Severe spinal cord compression Placement Information Referral Type:*Skilled Nursing/SNF Referral ID:[id number] Provider Name:[facility] Address 1:[address] Address 2: City:[place] Selection Factors: State:[place] Patient Contact Information Contact Name:PEPE Relationship:Son Address: Work Phone: City: [facility] Phone: [facility] Code: Email: Financial Information Financial Class:Medicare Primary Plan Desc:MEDICARE INPATIENT Primary Plan Number:[id number] Secondary Plan Desc: Secondary Plan Number: Assessment Information LACE LACE Length of stay for Answers: 4-6 days current admission Acuity / Level of Answers: Yes Care: Did the patient have an inpatient admission? Comorbidities - select Answers: Opioid dependence all that apply / Chronic pain # of Emergency department Answers: 1-2 visits in the last 6 months Score: 12 Date Signed: 01/15/2018 12:59 PM Electronically Signed By:Jerica Goldman LCSW [facility] CM Progress Note CM Note CM Note Notes: 72yr old male admitted for severe spinal cord compression. C5-6, T2-6 fusion, L3-4 lami, tumor resection. Patient being fitted for a brace, has 2 MICHAEL's. Therapies to eval, possible In-pt Rehab in the future. Date Signed: 01/14/2018 02:48 PM Electronically Signed By:Isabella Jenkins LCSW [facility] CM Progress Note CM Note CM Note Notes: PT/OT rec inpatient rehab. Pt requests referral to [facility] in [place] where pt lives. The Center accepts pt. D/c plan of care: [facility] when medically stable Date Signed: 01/16/2018 03:29 PM Electronically Signed By:MERCEDES Felton [facility] CM Progress Note CM Note CM Note Notes: Discussed dc plan of care today with pt, RN and Dr Christian and Jacquelyn FIGUEROA. Plan is for pt to dc tomorrow to [facility] in [place] (pt confirmed that this is where he would like to do rehab). Spoke w/Keith at this facility; they are able to accept tomorrow; transport set up by Keith [facility]oz[facility]cher transport (Dr Olson felt he should go by stretcher) for 11AM saturday AM 01/18/18. PCS completed and faxed to Keith; she assured me that if Medicare did not cover this transport that the charges would not fall on pt. Notified pt of transport pickup time. discussed w/RN. Date Signed: 01/17/2018 05:03 PM Electronically Signed By:Gisela Schafer RN Case Management Discharge Plan Note Case Management Discharge Discharge Order Complete? Answers: Yes Patient to Obtain Answers: Other Notes: [facility] Medications Transportation Arranged Answers: Other Notes: [facility] [employer] [facility] er transport Transport will Pick (Date 01/18/2018 11:00 AM & Time) Case Management Transport Answers: Yes Form Complete Faxed Final Orders Answers: Yes Agency/Facility Transfer Answers: Yes Report Printed & Faxed to Receiving Agency Family Notified Answers: Yes Notes: RN spoke w/son Discharge Comments Notes: Pt will dc today to [facility] in [place]. Spoke to keith at facility; they are ready to accept and transport is en route to pick pt up by noon. Keith confirmed today that their facility would be paying for transportation if not covered by medicare. Orders/info faxed, conf rec'd by Keith. discussed w/PA and RN who will call reprt to facility. Date Signed: 01/18/2018 11:13 AM Electronically Signed By:Gisela Schafer RN Intervention Information Intervention Type:*IM-Signed Date of Service:01/18/2018 11:28 AM Patient Type:Inpatient Staff Member:JESS Schafer, Gisela Hours: Discipline: Severity: Comment:
--- NOTE | 2018-01-28 11:55 | GDS ---
[f rep st] DISCHARGE SUMMARY ADMISSION DIAGNOSIS: Cervical stenosis with thoracic stenosis. DISCHARGE DIAGNOSIS: Status post C5-6 anterior cervical diskectomy and fusion with a T2 to T6 settlement worker ior fusion and T3-4 laminectomy for tumor resection. HISTORY AND PHYSICAL: Please see admission history and physical. HOSPITAL COURSE: Patient is a 72-year-old male who presented with progressive ataxia and leg weaknes s. 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 He was taken to the operating room on 01/13/2018 where he underwent a C5-6 anterior cervical diskectomy and fusion with a T3-4 laminectomy for resection of his epidural tumor with a T2 to T6 posterior instrumentation and fusion. There were no intraoperative complications and he was a dmitted for further care. Postoperative imaging showed good decompression of his thoracic spine. [facility] pathology reports indicate this lesion to be a hemangioma according to the [facility] pathologists, Dr. Pearce. He made slow progress with physical therapy and occupational therapy . [facility] [place] on [facility]/18/2018. Patient was discharged w ith cervical and thoracic fusion instructions and recommended he return for neurosurgical followup ap pointment in approximately 2 weeks. /[id number]/MODL
== END 2018-01-18 13:40 | DRG 454 ==
LOC: F3N 08:04 → F2N 16:42 → F3N 01-15 18:02
PROVIDERS: ADMIT Neurological Surgery; ATTEND Neurological Surgery
PROC: 0RG10A0 Fusion of Cervical Vertebral Joint with Interbody Fusion Device, Anterior Approach, Anterior Column, Open Approach (ICD-10-PCS; principal; 2018-01-13 12:00)
PROC: 3E0U0GB Introduction of Recombinant Bone Morphogenetic Protein into Joints, Open Approach (ICD-10-PCS; principal; 2018-01-13 12:00)
PROC: 0PB30ZZ Excision of Cervical Vertebra, Open Approach (ICD-10-PCS; principal; 2018-01-13 12:00)
PROC: 0RT30ZZ Resection of Cervical Vertebral Disc, Open Approach (ICD-10-PCS; principal; 2018-01-13 12:00)
PROC: 00BT0ZX Excision of Spinal Meninges, Open Approach, Diagnostic (ICD-10-PCS; 2018-01-13 12:00)
PROC: 0RG70K1 Fusion of 2 to 7 Thoracic Vertebral Joints with Nonautologous Tissue Substitute, Posterior Approach, Posterior Column, Open Approach (ICD-10-PCS; 2018-01-13 12:00)
DX: M50.20 Other cervical disc displacement, unspecified cervical region (principal); D18.09 Hemangioma of other sites; G99.2 Myelopathy in diseases classified elsewhere; M48.02 Spinal stenosis, cervical region; E66.01 Morbid (severe) obesity due to excess calories; Z68.32 Body mass index [BMI] 32.0-32.9, adult
CPT/HCPCS: 97116-GP; 97162-GP; 97166-GO; 97530-GP; 97535-GO; A9585; C1713; C1762; G8978-GP-CK; G8979-GP-CI; G8987-GO-CL; G8988-GO-CI; J0171; J0690; J1100; J1170; J1650; J2250; J2270; J2274; J2405; J2704; J3010; P9041